=== PATIENT | female | born 1990 | race Caucasian/White ===

== ENCOUNTER 2018-11-05 00:47 | Emergency (ER) | payer OTHER ==
[~2018-11-05] VITALS: Ht 154.9 cm; Wt 65.0 kg
[2018-11-05] MEDS ORDERED: SODIUM CHLORIDE 0.9% 1,000 ML IV ONE (07:04)
[2018-11-05] MEDS ORDERED: ONDANSETRON HCL 4MG/2ML INJ IV STA (07:04)
[2018-11-05] MEDS ORDERED: MECLIZINE 25MG TABLET PO ONE (07:15)
[2018-11-05] MEDS ORDERED: FLUTICASONE PROPIONATE 50MCG/SPRAY BOTTLE BOTHNSTRLS STA (07:22)
[2018-11-05 09:28] VITALS: BP 105/68
== END 2018-11-05 09:32 | disposition home or self-care (01) ==
LOC: ER 00:47
DX: H81.10 Benign paroxysmal vertigo, unspecified ear (principal); R11.2 Nausea with vomiting, unspecified; J45.909 Unspecified asthma, uncomplicated; Z90.49 Acquired absence of other specified parts of digestive tract
CPT/HCPCS: 81025; 96361; 96374; 99283; J2405; J7030; J8597; Z7610

== ENCOUNTER 2021-11-24 16:22 | Emergency (ER) | payer OTHER ==
[~2021-11-24] VITALS: Ht 154.9 cm; Wt 57.0 kg
[2021-11-24] MEDS ORDERED: KETOROLAC 60MG/2ML VIAL IM ONE (16:45)
[2021-11-24 17:06] VITALS: BP 112/76
[2021-11-24] MEDS ORDERED: CYCL10TA7 MT (18:16)
== END 2021-11-24 18:54 | disposition home or self-care (01) ==
LOC: ER 16:22
DX: R51.9 Headache, unspecified (principal); S03.01XA Dislocation of jaw, right side, initial encounter; J45.909 Unspecified asthma, uncomplicated; I49.8 Other specified cardiac arrhythmias; X58.XXXA Exposure to other specified factors, initial encounter; Y93.9 Activity, unspecified; Y92.9 Unspecified place or not applicable; Z98.890 Other specified postprocedural states
CPT/HCPCS: 81025; 93005; 96372; 99283; J1885

== ENCOUNTER 2024-04-17 20:14 | Emergency (ER) | payer OTHER ==
[~2024-04-17] VITALS: Ht 154.9 cm; Wt 64.0 kg
[~2024-04-17 20:14] MED LIST: CYCL10TA21 MT
[2024-04-17 20:57] VITALS: BP 115/83; PULSE 93; RESP 16; TEMP 98.2; O2SAT 98
== END 2024-04-17 20:50 | disposition left against medical advice (07) ==
LOC: ER 20:14
DX: T78.40XA Allergy, unspecified, initial encounter (principal); Z53.21 Procedure and treatment not carried out due to patient leaving prior to being seen by health care provider; X58.XXXA Exposure to other specified factors, initial encounter
CPT/HCPCS: Z7610 ×2

== ENCOUNTER 2024-06-26 09:17 | Emergency (ER) | payer MEDICAID, OTHER ==
[~2024-06-26] VITALS: Ht 170.2 cm; Wt 64.0 kg
[2024-06-26 09:20] VITALS: O2SAT 99
[2024-06-26 10:22] LABS: BASOPHILS % 0.4 % (0.0-2.0); EOSINOPHILS % 0.1 % (0.0-5.0); HEMATOCRIT. 42.8 % (36.0-48.0); HEMOGLOBIN. 14.1 g/dL (12.0-16.0); LYMPHOCYTES % 28.9 % (20.0-50.0); MEAN CORPUSCULAR HEMOGLOBIN 28.1 pg (28.0-32.0); MEAN CORPUSCULAR HGB CONC 32.9 g/dL (31.0-37.0); MEAN CORPUSCULAR VOLUME 85.2 fL (81.0-99.0); MEAN PLATELET VOLUME 7.2 fl (7.4-10.4); MONOCYTES % 7.2 % (2.0-8.0); NEUTROPHILS % 63.4 % (40.0-76.0); PLATELET 297 x1000/uL (130-400); RED BLOOD CELL COUNT 5.03 mill/uL (4.2-5.4); RED CELL DISTRIBUTION WIDTH 13.1 % (11.6-14.6); WHITE BLOOD COUNT 8.4 x1000/uL (4.5-11.0)
[2024-06-26 10:30] LABS: CHLORIDE 107 mEq/L (98-107); POTASSIUM 3.3 mEq/L (3.5-5.1); SODIUM 139 mEq/L (136-145)
[2024-06-26 10:31] LABS: CALCIUM 9.7 mg/dL (8.7-10.4); CARBON DIOXIDE 22 mEq/L (21-32)
[2024-06-26 10:36] LABS: CREATININE 0.8 mg/dL (0.6-1.0); GLUCOSE 96 mg/dL (70-105); UREA NITROGEN BLOOD 7 mg/dL (9-23)
[2024-06-26 10:54] LABS: TROPONIN I HIGH SENSITIVITY < 4 ng/L (3.0-34)
[2024-06-26 10:59] LABS: HCG SCREEN NEGATIVE
[2024-06-26] MEDS: SODIUM CHLORIDE 0.9% 1,000 ML IV ONE (11:07)
[2024-06-26] MEDS: IBUPROFEN 600MG TABLET PO STA (11:07)
[2024-06-26] MEDS: LORAZEPAM 1MG TABLET PO ONE (11:08)
[2024-06-26] MEDS: POTASSIUM CHLORIDE 20MEQ TABLET SR PO NR (11:08)
[2024-06-26] MEDS ORDERED: IBUP-2028 MT (12:08)
[2024-06-26 13:08] VITALS: BP 121/83; PULSE 78; RESP 16; TEMP 36.94740; O2SAT 98
== END 2024-06-26 13:11 | disposition home or self-care (01) ==
LOC: ER 09:17
DX: S39.012A Strain of muscle, fascia and tendon of lower back, initial encounter (principal); F41.1 Generalized anxiety disorder; J45.909 Unspecified asthma, uncomplicated; Z90.49 Acquired absence of other specified parts of digestive tract; W19.XXXA Unspecified fall, initial encounter; Y93.89 Activity, other specified; Y92.89 Other specified places as the place of occurrence of the external cause; Y99.8 Other external cause status
CPT/HCPCS: 80048; 84703; 85025; 84484; 36415; 93005; 96360; 99284; J7030; Z7610 ×2; 99283